=== PATIENT | female | born 1995 | race African-American/Black ===

== ENCOUNTER 2016-09-18 09:07 | Emergency (ER) | payer MEDICAID ==
[~2016-09-18] VITALS: Ht 162.6 cm; Wt 65.0 kg
[~2016-09-18 09:07] MED LIST: PENI500T PO
[2016-09-18 09:08] VITALS: BP 123/83; PULSE 85; RESP 17; TEMP 98.2; O2SAT 98
[2016-09-18] MEDS ORDERED: RESP: ALBUTEROL 2.5 MG/3 ML NEB (SCH) INH ONE (09:30)
[2016-09-18] MEDS ORDERED: predniSONE 20 MG TAB PO ONE (09:30)
[2016-09-18] MEDS ORDERED: PRED-503 PO (09:37)
[2016-09-18] MEDS ORDERED: BENZ100 PO (09:37)
[2016-09-18] MEDS ORDERED: ALBUAER3 INH (09:37)
[2016-09-18] MEDS ORDERED: MOME17I EACH NARE (09:37)
--- NOTE | 2016-09-18 09:37 | PD ---
HPI Chief Complaint: Cold / Flu Symptoms Time Seen by Provider: 09:28 Travel History International Travel<30 days: No Contact w/Intl Traveler<30days: No Traveled to known affect area: No History of Present Illness HPI 21-year-old female presents to the emergency Department with complaint of cough 3 days. Reports nasal congestion with yellow sputum. Reports subjective fever yesterday. Has not taken her temperature and cannot report a MAXIMUM TEMPERATURE. Has tried [id number] medications with no relief of symptoms. Reports wheezing. Reports history of bronchitis. Denies history of asthma. Denies chest pain. Reports feeling like she can't catch her breath. Denies history of DVT/PE. Denies hemoptysis. Denies recent surgery, travel, hospitalization. Denies leg edema. Denies control. Patient also is complaining of diarrhea 3 days; last episode yesterday. Has not taken any medications or drainage from his to alleviate the diarrhea. Denies abdominal pain or vomiting. Denies hematochezia. No known aggravating or relieving factors. Denies significant past medical history. No known allergies. Does not have primary care. No other modifying factors or associated signs and symptoms. PFSH Past Medical History Developmental Delay: No Immunizations Current: Yes ?: Not LMP: 08/2016 : 1 Para: 0 Social History Alcohol Use: No Tobacco Use: No Substance Use: No Allergies-Medications (Allergen,Severity, Reaction): Coded Allergies: No Known Allergies (Unverified , 09/18/16) Reported Meds & Prescriptions Reported Meds & Active Scripts Active Tessalon Perles (Benzonatate) 100 Mg Cap 100 Mg PO TID PRN Nasonex Nasal [place] (Mometasone Furoate) 50 Mcg/Act Naspr 2 [place] EACH NARE DAILY PRN Deltasone (Prednisone) 20 Mg Tab 40 Mg PO DAILY 4 Days start 09/19/2016 Proair Hfa 8.5 GM Inh (Albuterol Sulfate) 90 Mcg/Act Aer 2 Puff INH Q4-6H PRN 108 mcg/actuation Review of Systems Except as stated in HPI: all other systems reviewed are Neg Physical Exam Narrative GENERAL: Well-nourished, well-developed female patient, in no acute distress SKIN: Warm and dry. HEAD: Atraumatic. Normocephalic. EYES: Pupils equal and round. No scleral icterus. No injection or drainage. ENT: Mucosa pink and moist. No erythema or exudates. No uvular edema. No uvular , palatal, or tonsillar deviation. Airway patent. Nares without nasal blood, purulent drainage or septal hematoma. EARS: Bilateral pinnae and external canals appear within normal limits. Bilateral tympanic membranes without erythema, dullness or perforation. NECK: Trachea midline. No lymphadenopathy. CARDIOVASCULAR: Regular rate and rhythm. No murmur appreciated. RESPIRATORY: No accessory muscle use. Lungs decreased to bilateral bases to auscultation. Breath sounds equal bilaterally. No retractions or tachypnea. No Audible wheezing noted. GASTROINTESTINAL: Abdomen soft, non-tender, nondistended. Hepatic and splenic margins not palpable. Bowel sounds are active 4 quadrants. MUSCULOSKELETAL: No obvious deformities. No clubbing. No cyanosis. No edema. NEUROLOGICAL: Awake and alert. Oriented 3. No obvious cranial nerve deficits. Motor grossly within normal limits. Normal speech. Moves all extremities. 5/5 strength to all extremities. PSYCHIATRIC: Appropriate mood and affect; insight and judgment normal. Data Data Last Documented VS Vital Signs Date Time Temp Pulse Resp B/P Pulse Ox O2 Delivery O2 Flow Rate FiO2 09/18/16 09:28 17 09/18/16 09:08 98.2 85 123/83 98 Orders Prednisone (Deltasone) (09/18/16 09:30) Albuterol Neb (Albuterol Neb) (09/18/16 09:30) [facility] Medical Decision Making Medical Screen Exam Complete: Yes Emergency Medical Condition: Yes Medical Record Reviewed: Yes Differential Diagnosis Viral illness, acute bronchitis, less likely PE Narrative Course 21-year-old female with cough 3 days. Patient is afebrile nontoxic appearing in the ER. She is in no acute distress and oxygen saturation is 98% on room air. No retractions or tachypnea. Bilateral lung bases are decreased on auscultation. History of bronchitis. Denies history of asthma. Patient reports wheezing. Reports feeling short of breath. Denies chest pain. The patient denies history of PE or DVT; denies recent surgery or trauma, hemoptysis , exogenous estrogen, leg edema. The patient has no present criteria for pulmonary embolism; using the PERC rule for pulmonary embolism there is no need for further workup for PE. Albuterol nebulizer and Deltasone ordered. 0955: Patient reports improvement in symptoms. Denies shortness of breath at this time. Lungs are clear and equal bilaterally and without wheezing. Pulmonary inhaler, Deltasone, Tessalon Perles, Nasonex nasal spray prescribed for home. Instructed patient to use [id number] medications for relief of diarrhea. Patient verbalized understanding and agreement with treatment plan. Patient is medically cleared and stable for discharge. Discussed reasons to return to the emergency department. Instructed patient to follow up with primary care provider. Patient agrees with treatment plan. The patients vital signs are stable and the patient is stable for outpatient follow-up and treatment. Patient discharged home, stable and in no acute distress. Diagnosis Primary Impression: Acute bronchitis Qualified Code: J20.9 - Acute bronchitis, unspecified organism Referrals: Primary Care Physician Patient Instructions: Acute Bronchitis (ED), Acute Diarrhea (ED), Cold Symptoms (ED), General Instructions, Safe Use of Cough and Cold Medicines (ED) Departure Forms: Tests/Procedures, Work Release Enter return to work date: Sep 19, 2016 Additional Instructions: Drink plenty of clear liquids including water and broths Avoid dairy products, fatty foods, highly seasoned foods Scott diet to include soda crackers, toast, eggs, rice or chicken Uogy-nda-gghokdr antidiarrheal medications as needed and instructed; such as Imodium, Pepto-Bismol Follow-up with primary care provider Return to emergency department immediately with worsening of symptoms Use albuterol inhaler at home as needed for shortness of breath and wheezing Take oral steroids as prescribed and complete full course avoid asthma triggers such as second hand smoke, dust, known allergens Follow-up with primary care provider within 1 to 2 days Return to emergency department immediately with worsening of symptoms Med/Other Pt SpecificInfo: Prescription(s) given Scripts Benzonatate (Tessalon Perles)100 Mg [id number] Mg PO TID PRN (COUGH) #21 CAP Ref 0 Prov:Bruna MeeksP 09/18/16 Mometasone Nasal [place] (Nasonex Nasal [place])50 Mcg/Act Naspr2 [place] EACH NARE DAILY PRN (NASAL CONGESTION) #1 BOTTLE Ref 0 Prov:Bruna MeeksP 09/18/16 Prednisone (Deltasone)20 Mg Tab40 Mg PO DAILY 4 Days Ref 0 start 09/19/2016 Prov:Bruna MeeksP 09/18/16 Albuterol 8.5 GM Inh (Proair Hfa 8.5 GM Inh)90 Mcg/Act Aer2 Puff INH Q4-6H PRN ( SOB/WHEEZING) #1 INHALER Ref 0 108 mcg/actuation Prov:Bruna Meeks [employer]IEF PROGRAM OFFICER 09/18/16 Disposition: 01 DISCHARGE HOME Condition: Stable Bruna MeeksP Sep 18, 2016 09:37
== END 2016-09-18 10:05 | disposition home or self-care (01) ==
LOC: NEPB 09:07
DX: J20.9 Acute bronchitis, unspecified (principal)
CPT/HCPCS: 94664; 99283; J7512; J7613

== ENCOUNTER 2016-09-30 18:16 | Emergency (ER) | payer MEDICAID ==
[~2016-09-30] VITALS: Ht 152.4 cm; Wt 80.0 kg
[~2016-09-30 18:16] MED LIST changes: +ALBUAER3 INH; +BENZ100 PO; +MOME17I EACH NARE; -PENI500T PO; +PRED-503 PO
[2016-09-30 18:18] VITALS: BP 128/83; PULSE 90; RESP 14; TEMP 98.2; O2SAT 99
[2016-09-30] MEDS ORDERED: SODIUM CHLOR 0.9% 1000 ML INJ 1,000 ML IV ONE (20:30)
[2016-09-30] MEDS ORDERED: KETOROLAC TROMETHAMINE 30 MG/ML (IVP) VIAL IV PUSH ONE (20:30)
--- NOTE | 2016-09-30 20:35 | PD ---
HPI Chief Complaint: Abdominal Pain Time Seen by Provider: 19:57 Travel History International Travel<30 days: No Contact w/Intl Traveler<30days: No Traveled to known affect area: No History of Present Illness HPI The patient is a 21-year-old Michelle female who presents emergency department for right sided chest wall pain. The patient states she was diagnosed with bronchitis one week ago, was placed on albuterol inhaler. Yesterday, the patient developed pain located lateral aspect the right rib cage. The pain is worse with deep inspiration, movement to the left and right, as well as palpation. She denies any outright shortness of breath. She does note a family history of blood clots in the past, but denies any personal history of pulmonary embolism or DVT. The patient denies any recent hospitalizations, surgeries, travel, or control use. The patient's last menstrual cycle was at the end of August, she denies . She denies any associated nausea, vomiting, abdominal pain, or postprandial symptoms. PFSH Past Medical History Medical History: Denies Significant Hx Developmental Delay: No Immunizations Current: Yes Tetanus Vaccination: < 5 Years ?: Not LMP: AUG 2016 : 1 Para: 0 Past Surgical History Surgical History: No Previous Surgery Social History Alcohol Use: No Tobacco Use: No Substance Use: No Allergies-Medications (Allergen,Severity, Reaction): Coded Allergies: No Known Allergies (Unverified , 09/30/16) Reported Meds & Prescriptions Reported Meds & Active Scripts Active Proair Hfa 8.5 GM Inh (Albuterol Sulfate) 90 Mcg/Act Aer 2 Puff INH Q4-6H PRN 108 mcg/actuation Review of Systems Except as stated in HPI: all other systems reviewed are Neg General / Constitutional: No: Fever Cardiovascular: Positive: Chest Pain or Discomfort Respiratory: Positive: Pleuritic Pain, No: Shortness of Breath Gastrointestinal: No: Nausea, Vomiting, Abdominal Pain, Loss of Appetite Genitourinary: No: Dysuria Musculoskeletal: No: Myalgias Skin: No Rash Physical Exam Narrative GENERAL: Awake, alert, nontoxic-appearing 21-year-old female who appears her stated age and is in no acute respiratory distress. SKIN: Warm and dry. No stigmata of shingles. HEAD: Atraumatic. Normocephalic. EYES: No injection or drainage. ENT: No nasal bleeding or discharge. Mucous membranes pink and moist. NECK: Trachea midline. No JVD. CARDIOVASCULAR: Regular rate and rhythm. No murmur appreciated. Right chest wall is tender palpation, no crepitus noted. RESPIRATORY: No accessory muscle use. Clear to auscultation. Breath sounds equal bilaterally. GASTROINTESTINAL: Abdomen soft, non-tender, nondistended. Negative Malagon's. No rebound tenderness. Back: No CVA tenderness. MUSCULOSKELETAL: No obvious deformities. No clubbing. No cyanosis. No edema. NEUROLOGICAL: Awake and alert. No obvious cranial nerve deficits. Motor grossly within normal limits. Normal speech. PSYCHIATRIC: Appropriate mood and affect; insight and judgment normal. Data Data Last Documented VS Vital Signs Date Time Temp Pulse Resp B/P Pulse Ox O2 Delivery O2 Flow Rate FiO2 09/30/16 18:18 98.2 90 14 128/83 99 Orders Basic Metabolic Panel (Bmp) (09/30/16 20:24) D-Dimer (09/30/16 20:24) Ed Urine Pregnancytest Poc (09/30/16 20:24) Chest, Single Ap (09/30/16 ) Ketorolac Inj (Toradol Inj) (09/30/16 20:30) Sodium Chlor 0.9% 1000 Ml Inj (Ns 1000 M (09/30/16 20:30) Labs Laboratory Tests Test 09/30/16 20:40 D-Dimer Quantitative (PE/DVT) 0.34 MG/L FEU Sodium Level 136 MEQ/L Potassium Level 3.6 MEQ/L Chloride Level 104 MEQ/L Carbon Dioxide Level 22.9 MEQ/L Anion Gap 9 MEQ/L Blood Urea Nitrogen 7 MG/DL Creatinine 0.72 MG/DL Estimat Glomerular Filtration 121 ML/MIN Rate Random Glucose 97 MG/DL Calcium Level 8.8 MG/DL [facility] Medical Decision Making Medical Screen Exam Complete: Yes Emergency Medical Condition: Yes Medical Record Reviewed: Yes Interpretation(s) Laboratory Tests Test 09/30/16 20:40 D-Dimer Quantitative (PE/DVT) 0.34 MG/L FEU Sodium Level 136 MEQ/L Potassium Level 3.6 MEQ/L Chloride Level 104 MEQ/L Carbon Dioxide Level 22.9 MEQ/L Anion Gap 9 MEQ/L Blood Urea Nitrogen 7 MG/DL Creatinine 0.72 MG/DL Estimat Glomerular Filtration 121 ML/MIN Rate Random Glucose 97 MG/DL Calcium Level 8.8 MG/DL Chest x-ray unremarkable Differential Diagnosis Differential diagnosis includes costochondritis, neuralgia, shingles, pulmonary embolism, atelectasis, pleural effusion, atypical cholecystitis, atypical pyelonephritis. Narrative Course Chest x-ray was obtained. D-dimer and BMP were sent to lab. Bedside test was obtained. The patient was administered Toradol for her pain. D-dimer is negative, therefore, no indication for CT pulmonary angiogram. The patient be discharged home anti-inflammatories and muscle relaxers. The patient is advised to follow-up with her primary physician and return if symptoms worsen or progress. Diagnosis Primary Impression: Rib pain on right side Patient Instructions: General Instructions Additional Instructions: Medications as directed. Follow-up with your primary physician. Return if symptoms worsen or progress. Med/Other Pt SpecificInfo: Prescription(s) given Scripts Orphenadrine ER 12 HR (Orphenadrine CR)100 Mg [id number] Mg PO Q12HR 10 Days Ref 0 Prov:Ruperto Vasques MD 09/30/16 Ibuprofen 600 Mg [id number] Mg PO Q6H PRN (Pain/Inflammation) #20 TAB Ref 0 Prov:Ruperto Vasques MD 09/30/16 Disposition: DISCHARGE HOME Condition: Stable Ruperto Vasques MD Sep 30, 2016 20:35
[2016-09-30 21:30] LABS: BICARBONATE 22.9 MEQ/L (21.0-32.0); POTASSIUM 3.6 MEQ/L (3.5-5.1)
[2016-09-30] MEDS ORDERED: IBUP-232 PO (21:44)
[2016-09-30] MEDS ORDERED: ORPH100T99 PO (21:44)
--- NOTE | 2016-09-30 22:04 | RADRPT ---
EXAM DATE/TIME: 09/30/2016 20:41 [facility] COMPARISON: No previous studies available for comparison. INDICATIONS : Right flank pain. MEDICAL HISTORY : None. SURGICAL HISTORY : None. ENCOUNTER: Initial ACUITY: 1 day PAIN SCORE: 8/10 LOCATION: chest FINDINGS: A single view of the chest demonstrates the lungs to be symmetrically aerated without evidence of mas s, infiltrate or effusion. The cardiomediastinal contours are unremarkable. Osseous structures are intact. CONCLUSION: No acute disease. Scott Pedroza MD on September 30, 2016 at 22:02 Board Certified Radiologist. This report was verified electronically.
== END 2016-09-30 22:22 | disposition home or self-care (01) ==
LOC: NEPA 18:16
DX: R07.81 Pleurodynia (principal)
CPT/HCPCS: 71010; 80048; 84703; 85379; 96361; 96374; 99283; J1885; J7030

== ENCOUNTER 2017-05-07 18:31 | Emergency (ER) | payer MEDICAID ==
[~2017-05-07] VITALS: Ht 154.9 cm; Wt 61.0 kg
[~2017-05-07 18:31] MED LIST changes: -BENZ100 PO; +IBUP-232 PO; -MOME17I EACH NARE; +ORPH100T99 PO; -PRED-503 PO
[2017-05-07 18:33] VITALS: BP 123/77; PULSE 70; RESP 20; TEMP 98.2; O2SAT 100
--- NOTE | 2017-05-07 18:47 | PD ---
HPI . right middle finger infection x 3 days Chief Complaint: Injury Time Seen by Provider: 18:45 Travel History International Travel<30 days: No Contact w/Intl Traveler<30days: No Traveled to known affect area: No History of Present Illness HPI 22 yr old female here with c/o right middle finger infection x 3 days. She says it started off as a hang nail and now started swelling. She admits to pain in the area. She denies any fever or chills. PFSH Past Medical History Developmental Delay: No Respiratory: Yes (ASTHMA) Immunizations Current: Yes ?: Not LMP: APR 2017 : 1 Para: 0 Social History Alcohol Use: No Tobacco Use: No Substance Use: No Allergies-Medications (Allergen,Severity, Reaction): Coded Allergies: No Known Allergies (Unverified , 05/07/17) Reported Meds & Prescriptions Reported Meds & Active Scripts Active Bactrim DS (Sulfamethoxazole-Trimethoprim) 800-160 Mg Tab 1 Tab PO BID Orphenadrine CR (Orphenadrine Citrate) 100 Mg Tab 100 Mg PO Q12HR 10 Days Ibuprofen 600 Mg Tab 600 Mg PO Q6H PRN Proair Hfa 8.5 GM Inh (Albuterol Sulfate) 90 Mcg/Act Aer 2 Puff INH Q4-6H PRN 108 mcg/actuation Review of Systems General / Constitutional: No: Fever Eyes: No: Visual changes HENT: No: Headaches Cardiovascular: No: Chest Pain or Discomfort Respiratory: No: Shortness of Breath Gastrointestinal: No: Abdominal Pain Genitourinary: No: Dysuria Musculoskeletal: No: Pain Skin: Positive Other (finger swelling), No Rash Neurologic: No: Weakness Psychiatric: No: Depression Endocrine: No: Polydipsia Hematologic/Lymphatic: No: Easy Bruising Physical Exam Narrative GENERAL: AAO x 3, no acute distress, Well-nourished, well-developed patient. SKIN: Warm and dry. No visible rashes or bruising. right middle finger mild induration without any fluctuance HEAD: Normocephalic and atraumatic. EYES: No scleral icterus. No injection or drainage. ENT: No nasal drainage noted. Mucous membranes pink. Airway patent. NECK: Supple, trachea midline. No JVD. CARDIOVASCULAR: Regular rate and rhythm without murmurs, gallops, or rubs. RESPIRATORY: Breath sounds equal bilaterally. No accessory muscle use. No rhonchi or rales. GASTROINTESTINAL: visual inspection EXTREMITIES: No cyanosis or edema. BACK: No obvious deformity. NEURO: CN II-12 intact PSYCH: AAO x 3, normal affect. Data Data Last Documented VS Vital Signs Date Time Temp Pulse Resp B/P (MAP) Pulse Ox O2 Delivery O2 Flow Rate FiO2 05/07/17 18:33 98.2 70 20 123/77 (92) 100 Room Air MDM Medical Decision Making Medical Screen Exam Complete: Yes Emergency Medical Condition: Yes Medical Record Reviewed: Yes Differential Diagnosis finger cellulitis, paronychia, less likely sepsis Narrative Course 22 yr old female here with right middle finger infection. This is not a drainable paronychia. We will provide her with oral antibiotics. I recommend warm compresses to see if a head develops. Advised to return for any worsening infection. Ibuprofen for pain. Diagnosis Primary Impression: Cellulitis of finger of right hand Patient Instructions: General Instructions Additional Instructions: You can try to use warm compresses to the area to see if a head develops. If it does, you can come back to the emergency department to have it drained. [place] for worsening signs of infection which include fever, increased redness , increased warmth, purulent drainage, increased swelling or streaking. If any of these develop, please go to the nearest emergency room. Please return to emergency department if your symptoms return or worsen. Follow up with your primary care provider. Take medications as prescribed. Med/Other Pt SpecificInfo: Prescription(s) given Scripts Sulfamethoxazole-Trimethoprim (Bactrim DS) 800-160 Mg Tab 1 TAB PO BID for Infection, #14 TAB 0 Refills Prov: Valencia Vasquez MD 05/07/17 Disposition: 01 DISCHARGE HOME Condition: Stable Lauren Ingram May 07, 2017 18:47
[2017-05-07] MEDS ORDERED: BACT800T5 PO (18:51)
== END 2017-05-07 22:43 | disposition home or self-care (01) ==
LOC: NEPK 18:31
DX: L03.011 Cellulitis of right finger (principal)
CPT/HCPCS: 99283

== ENCOUNTER 2017-06-19 07:31 | Emergency (ER) | payer MEDICAID ==
[~2017-06-19] VITALS: Ht 152.4 cm; Wt 65.0 kg
[~2017-06-19 07:31] MED LIST changes: +BACT800T5 PO; -IBUP-232 PO; -ORPH100T99 PO
[2017-06-19 07:34] VITALS: BP 130/72; PULSE 107; RESP 14; TEMP 98.1; O2SAT 100
--- NOTE | 2017-06-19 08:29 | PD ---
HPI Chief Complaint: Skin Problem Time Seen by Provider: 08:22 Travel History International Travel<30 days: No Contact w/Intl Traveler<30days: No Traveled to known affect area: No History of Present Illness HPI 22-year-old female presents to emergency department complaining of left great toe and second toe pain. States that the pain started a couple of days ago and has worsened and started draining near the nail. Patient says that she has had new boots and thinks this may be the cause. Denies trauma. Denies numbness, tingling or weakness of the toes. Denies fever, chills, chest pain. Patient denies chronic medical conditions are chronic medication use. She is concerned about her toes because her family has a strong history of diabetes mellitus type 2. PFSH Past Medical History Asthma: Yes Developmental Delay: No Respiratory: Yes (ASTHMA) Immunizations Current: Yes ?: Not LMP: 05/28/17 : 1 Para: 0 Social History Alcohol Use: No Tobacco Use: No Substance Use: No Allergies-Medications (Allergen,Severity, Reaction): Coded Allergies: No Known Allergies (Unverified , 05/07/17) Reported Meds & Prescriptions Reported Meds & Active Scripts Active Keflex (Cephalexin) 500 Mg Cap 500 Mg PO Q8H 10 Days Bactrim DS (Sulfamethoxazole-Trimethoprim) 800-160 Mg Tab 1 Tab PO BID Proair Hfa 8.5 GM Inh (Albuterol Sulfate) 90 Mcg/Act Aer 2 Puff INH Q4-6H PRN 108 mcg/actuation Review of Systems Except as stated in HPI: all other systems reviewed are Neg Physical Exam Narrative GENERAL: Well-nourished, well-developed patient. SKIN: Focused skin assessment warm/dry. HEAD: Normocephalic. EYES: No scleral icterus. No injection or drainage. NECK: Supple, trachea midline. No JVD or lymphadenopathy. CARDIOVASCULAR: Regular rate and rhythm without murmurs, gallops, or rubs. RESPIRATORY: Breath sounds equal bilaterally. No accessory muscle use. GASTROINTESTINAL: Abdomen soft, non-tender, nondistended. MUSCULOSKELETAL: No cyanosis, or edema. Neurovascularly intact Left great toe- toe pad hypopigmented appearing, mildly fluctuant at tuft, TTP to toe up with distal phalangeal joint. Slight erythema. Multiple callouses to foot. Left second toe- tuft portion appears macerated, no obvious exudate or discharge. Mild TTP. BACK: Nontender without obvious deformity. No CVA tenderness. Left great toe right great toe Data Data Last Documented VS Vital Signs Date Time Temp Pulse Resp B/P (MAP) Pulse Ox O2 Delivery O2 Flow Rate FiO2 06/19/17 11:18 06/19/17 07:34 98.1 107 14 100 Orders Orders Foot, Limited (2vws) (06/19/17 ) Clindamycin Inj (Cleocin Inj) (06/19/17 09:45) Wound Culture And Gram Stain (06/19/17 10:47) Wound Care (06/19/17 10:49) Crutches (06/19/17 10:49) Ed Discharge Order (06/19/17 10:53) MDM Medical Decision Making Medical Screen Exam Complete: Yes Emergency Medical Condition: Yes Differential Diagnosis Left great toe cellulitis versus felon versus paronychia vs abscess Left second toe cellulitis versus felon versus paronychia Narrative Course 22-year-old female presents to emergency department complaining of left great toe and second toe pain. States that the pain started a couple of days ago and has worsened and started draining near the nail. Patient says that she has had new boots and thinks this may be the cause. Denies trauma. Denies numbness, tingling or weakness of the toes. Denies fever, chills, chest pain. Patient denies chronic medical conditions are chronic medication use. She is concerned about her toes because her family has a strong history of diabetes mellitus type 2. Physical exam and is consistent with abscess. Vitals stable I&D performed with scant exudate. Cultures obtained. Antibiotics for outpatient Patient advised on proper wound care. Follow-up PCP within 2 days. Patient educated on proper fitting footwear. Patient return to ED if symptoms persist or worsen Procedures Procedure Narrative INCISION AND DRAINAGE OF ABSCESS: The area was prepped and was sterilely draped. A digital block was performed of the great toe using 1% lidocaine. Approximately 6 cc required to probably an exercise. A number 11 scalpel was used to make 2 -5 mm cm incisions medial and lateral aspects of toe pad and one 2 mm incision to the distal. The abscess was drained, complex loculations were broken down, and irrigated with normal saline. Cultures were obtained. Sterile dressing applied. Patient advised on proper wound care. Diagnosis Primary Impression: Abscess Referrals: Press [facility] Additional Instructions: Keep area clean and dry. Take medications as prescribed. If symptoms persist or worsen return to the emergency department Scripts Cephalexin (Keflex) 500 Mg Cap 500 MG PO Q8H for Infection for 10 Days, #30 CAP 0 Refills Prov: Sandeep Mitchell MD 06/19/17 Sulfamethoxazole-Trimethoprim (Bactrim DS) 800-160 Mg Tab 1 TAB PO BID for Infection, #20 TAB 0 Refills Prov: Sandeep Mitchell MD 06/19/17 Disposition: 01 DISCHARGE HOME Condition: Stable Luz Elena Santacruz Jun 19, 2017 08:29
--- NOTE | 2017-06-19 09:13 | RADRPT ---
EXAM DATE/TIME: 06/19/2017 08:45 [facility] COMPARISON: No previous studies available for comparison. INDICATIONS : Left foot pain, no injury. MEDICAL HISTORY : None. SURGICAL HISTORY : None. ENCOUNTER: Initial ACUITY: 3 days PAIN SCORE: 10/10 LOCATION: Left foot, distal first digit. FINDINGS: Two view examination of the left foot demonstrates no soft tissue swelling, dislocation, or fracture. The calcaneus is intact. Bony mineralization is normal. CONCLUSION: No acute fracture or periosteal reaction. Torres Dimas MD on June 19, 2017 at 9:09 Board Certified Radiologist. This report was verified electronically.
[2017-06-19] MEDS ORDERED: CLINDAMYCIN PHOS 600 MG/4 ML VIAL IM ONE (09:45)
--- NOTE | 2017-06-19 10:00 | PD ---
Physical Exam Date Seen by Provider: Jun 19, 2017 Time Seen by Provider: 09:55 Narrative This patient presents with pain and swelling of her great toe. She has a lesser amount of pain and swelling of her second toe. Data Data Last Documented VS Vital Signs Date Time Temp Pulse Resp B/P (MAP) Pulse Ox O2 Delivery O2 Flow Rate FiO2 06/19/17 07:34 98.1 107 14 130/72 (91) 100 Orders Orders Foot, Limited (2vws) (06/19/17 ) Clindamycin Inj (Cleocin Inj) (06/19/17 09:45) MDM Supervised Visit with JEAN PIERRE: Yes Narrative Course I, Dr. Birmingham, have reviewed the advance practice practitioner's documentation and am in agreement, met with the patient face to face, made the diagnosis, and the medical decision making was done by me. *My assessment and Findings: The entire pad of her great toe is fluctuant and tender. Please see Luz Elena Santacruz PA-C's note for further details, lab and radiology results, final diagnosis and disposition. Condition: Stable Mary Birmingham MD Jun 19, 2017 10:00
[2017-06-19] MEDS ORDERED: BACT800T5 PO (10:48)
[2017-06-19] MEDS ORDERED: CEPH-460 PO (10:48)
[2017-06-21] MEDS ORDERED: ALBUAER3 INH (11:04)
== END 2017-06-19 11:19 | disposition home or self-care (01) ==
LOC: NEPD 07:31
DX: L02.612 Cutaneous abscess of left foot (principal); B95.1 Streptococcus, group B, as the cause of diseases classified elsewhere; B95.61 Methicillin susceptible Staphylococcus aureus infection as the cause of diseases classified elsewhere
CPT/HCPCS: 10060; 73620; 86403; 87070; 87186; 96372; 99284; E0113

== ENCOUNTER 2017-09-06 17:49 | Emergency (ER) | payer MEDICAID ==
[~2017-09-06] VITALS: Ht 152.4 cm; Wt 62.3 kg
[~2017-09-06 17:49] MED LIST changes: +CEPH-460 PO
[2017-09-06 17:51] VITALS: BP 116/73; PULSE 79; RESP 14; TEMP 98.1; O2SAT 100
[2017-09-06] MEDS ORDERED: CEPH-460 PO (18:12)
[2017-09-06] MEDS ORDERED: BACT800T5 PO (18:12)
[2017-09-06] MEDS ORDERED: IBUP1TAB7 PO (18:12)
--- NOTE | 2017-09-06 18:13 | PD ---
HPI Chief Complaint: Skin Problem Time Seen by Provider: 18:03 Travel History International Travel<30 days: No Contact w/Intl Traveler<30days: No Traveled to known affect area: No History of Present Illness HPI 22-year-old female presents to the emergency department with complaint of an abscess to her left axillary area times one week. Area has gotten bigger. Denies fever, vomiting. Symptoms are mild in severity. She has tried warm compresses for symptom management. Has not taken any medication to alleviate her symptoms. No one else with similar symptoms. History of abscesses. No known aggravating or relieving factors. Has an established primary care provider, but doesn't remember the name. No known allergies. Denies significant past medical history. Has no other medical complaints. No other modifying factors or associated signs and symptoms. PFSH Past Medical History Asthma: Yes Developmental Delay: No Respiratory: Yes (ASTHMA) Immunizations Current: Yes ?: Not LMP: 09/05/2017 : 1 Para: 0 Social History Alcohol Use: No Tobacco Use: No Substance Use: No Allergies-Medications (Allergen,Severity, Reaction): Coded Allergies: No Known Allergies (Verified Allergy, Unknown, 06/21/17) Reported Meds & Prescriptions Reported Meds & Active Scripts Active Ibuprofen 800 Mg Tab 800 Mg PO Q6HR PRN Bactrim DS (Sulfamethoxazole-Trimethoprim) 800-160 Mg Tab 1 Tab PO BID 10 Days Keflex (Cephalexin) 500 Mg Cap 500 Mg PO Q6H 10 Days Proair Hfa 8.5 GM Inh (Albuterol Sulfate) 90 Mcg/Act Aer 2 Puff INH Q4-6H PRN 108 mcg/actuation Keflex (Cephalexin) 500 Mg Cap 500 Mg PO Q8H 10 Days Bactrim DS (Sulfamethoxazole-Trimethoprim) 800-160 Mg Tab 1 Tab PO BID Review of Systems Except as stated in HPI: all other systems reviewed are Neg Physical Exam Narrative GENERAL: Well-nourished, well-developed black female patient, in no acute distress; afebrile, nontoxic-appearing SKIN: There is an indurated area to the left axilla which measures about 2 cm in diameter. It is fluctuant but there is no pointing or drainage. There is a zone of inflammation around it but no lymphangitis. HEAD: Atraumatic. Normocephalic. EYES: Pupils equal and round. No scleral icterus. No injection or drainage. ENT: Mucosa pink and moist. Airway patent. NECK: Trachea midline. CARDIOVASCULAR: Regular rate. RESPIRATORY: No accessory muscle use. GASTROINTESTINAL: Flat. MUSCULOSKELETAL: No obvious deformities. No clubbing. No cyanosis. No edema. NEUROLOGICAL: Awake and alert. Oriented 3. No obvious cranial nerve deficits. Motor grossly within normal limits. Normal speech. PSYCHIATRIC: Appropriate mood and affect; insight and judgment normal. Data Data Last Documented VS Vital Signs Date Time Temp Pulse Resp B/P (MAP) Pulse Ox O2 Delivery O2 Flow Rate FiO2 09/06/17 17:51 98.1 79 14 116/73 (87) 100 Orders Orders Lidocaine 1% Inj (50 Ml) (Xylocaine 1% I (09/06/17 18:15) Wound Culture And Gram Stain (09/06/17 18:30) [facility] Medical Decision Making Medical Screen Exam Complete: Yes Emergency Medical Condition: Yes Medical Record Reviewed: Yes Differential Diagnosis Abscess, folliculitis, hidradenitis Narrative Course 22-year-old female with left axillary abscess. See my procedure note for incision and drainage. Wound culture pending. Keflex and Bactrim prescribed for home. Instructed patient to return to the emergency department in 48 hours for packing removal. Instructed patient to follow up with primary care provider. Patient verbalizes understanding and agreement with treatment plan. Patient is medically cleared and stable for discharge. Discussed reasons to return to the emergency department. Patient agrees with treatment plan. The patients vital signs are stable and the patient is stable for outpatient follow- up and treatment. Patient discharged home, stable and in no acute distress. Procedures Procedure Narrative INCISION AND DRAINAGE OF ABSCESS: The area was prepped and was sterilely draped. A subcutaneous wheal of 1 % Xylocaine with a total number 2 mL was used to anesthetize the area properly. A number 11 scalpel was used to make a 1 -cm incision across the area of the abscess. The abscess was drained, complex loculations were broken down, and irrigated with normal saline. Cultures were obtained. Quarter inch iodoform packing was placed in the wound. Sterile dressing applied. Patient advised to have packing removed in two days. Diagnosis Primary Impression: Abscess of left axilla Referrals: Primary Care Physician Patient Instructions: Abscess (ED), Abscess Follow-up (ED), Abscess Incision and Drainage (DC), General Instructions Departure Forms: Tests/Procedures, Work Release Additional Instructions: Complete full course of antibiotics Warm compresses to the affected area Keep area clean and dry Ibuprofen or Tylenol as directed and as needed for pain and inflammation Return to the emergency department in 48 hours for packing removal Follow-up with primary care provider Return to emergency department immediately with worsening of symptoms Med/Other Pt SpecificInfo: Prescription(s) given Scripts Ibuprofen (Ibuprofen) 800 Mg Tab 800 MG PO Q6HR Y for PAIN, #30 TAB 0 Refills Prov: Bruna Meeks 09/06/17 Sulfamethoxazole-Trimethoprim (Bactrim DS) 800-160 Mg Tab 1 TAB PO BID for Infection for 10 Days, #20 TAB 0 Refills Prov: Bruna Meeks 09/06/17 Cephalexin (Keflex) 500 Mg Cap 500 MG PO Q6H for Infection for 10 Days, #40 CAP 0 Refills Prov: Bruna Meeks 09/06/17 Disposition: 01 DISCHARGE HOME Condition: Stable Bruna Meeks Sep 06, 2017 18:13
[2017-09-06] MEDS ORDERED: LIDOCAINE HCL 1% 50 ML VIAL INFIL ONE (18:15)
[2017-09-06] MEDS ORDERED: IBUPROFEN 800 MG TAB PO ONE (18:45)
== END 2017-09-06 18:30 | disposition home or self-care (01) ==
LOC: NEPK 17:49
DX: L02.412 Cutaneous abscess of left axilla (principal); A49.01 Methicillin susceptible Staphylococcus aureus infection, unspecified site; J45.909 Unspecified asthma, uncomplicated; Z79.899 Other long term (current) drug therapy
CPT/HCPCS: 10061; 86403; 87070; 87186; 87205

== ENCOUNTER 2017-09-08 22:06 | Emergency (ER) | payer MEDICAID ==
[~2017-09-08] VITALS: Ht 152.4 cm; Wt 63.0 kg
[~2017-09-08 22:06] MED LIST changes: +IBUP1TAB7 PO
[2017-09-08 22:08] VITALS: BP 115/63; PULSE 70; RESP 16; TEMP 99; O2SAT 100
== END 2017-09-08 23:55 | disposition left against medical advice (07) ==
LOC: NED 22:06
DX: T14.90XA Injury, unspecified, initial encounter (principal); Z48.00 Encounter for change or removal of nonsurgical wound dressing; X58.XXXA Exposure to other specified factors, initial encounter; Y93.9 Activity, unspecified; Y92.9 Unspecified place or not applicable; Y99.9 Unspecified external cause status
CPT/HCPCS: 99281